=== PATIENT | male | born 1960 | race Caucasian/White ===

== ENCOUNTER 2016-12-19 17:23 | Emergency (ER) | payer OTHER ==
[2016-12-19 17:28] VITALS: TEMP 97.3; BMI 30.7
--- NOTE | 2016-12-19 17:31 | PDOC ---
History of Present Illness - General History Source: Patient Exam Limitations: No Limitations - History of Present Illness Initial Comments: 12/19/16 17:31 CHIEF COMPLAINT: Lightheadedness HISTORY OF PRESENT ILLNESS: This is a 56 year old male with a history of multiple DVTs and prostate ca s/p prostatectomy in 2016 who works as an OR tech. He started work at 3pm and was in his usual state of health, but while walking at around 5pm suddenly became lightheaded and felt like he was about to faint. He was noted by staff to be diaphoretic. He denies chest pain, shortness of breath, or any other symptoms. He reports abdominal discomfort throughout the week, but denies nausea/vomiting, diarrhea/constipation, and fevers/chills. Vital signs on arrival are notable for P 98. FSBG is 88. PCP is Dr. Kohler. REVIEW OF SYSTEMS: GENERAL/CONSTITUTIONAL: No fever or chills. No weakness. No weight change. HEAD, EYES, EARS, NOSE AND THROAT: No change in vision. No ear pain or discharge. No sore throat. CARDIOVASCULAR: No chest pain or palpitations. Lightheadedness, near syncope. RESPIRATORY: No cough, wheezing, or shortness of breath. GASTROINTESTINAL: No nausea, vomiting, diarrhea or constipation. GENITOURINARY: No dysuria, frequency, or change in urination. MUSCULOSKELETAL: No joint or muscle swelling or pain. No neck or back pain. SKIN: No rash or easy bruising. NEUROLOGIC: No headache, vertigo, loss of consciousness, or loss of sensation. PSYCHIATRIC: No depression or anxiety. ENDOCRINE: No increased thirst. No abnormal weight change. HEMATOLOGIC/LYMPHATIC: No anemia, easy bleeding, or history of blood clots. ALLERGIC/IMMUNOLOGIC: No hives or skin allergy. No latex allergy. PHYSICAL EXAM: GENERAL: The patient is awake, alert, and fully oriented, in no acute distress. ENT: Pupils equal, round and reactive to light, extraocular movements intact, sclera anicteric, conjunctiva clear. Neck supple. LUNGS: Clear to auscultation bilaterally. Normal excursion. No respiratory distress or use of accessory muscles. CV: RRR, S1/S2, no MRG. Cap refill < 2 sec. ABDOMEN: Soft, non-distended, non-tender. EXTREMITIES: Normal range of motion, no edema. NEUROLOGICAL: Normal speech, normal gait. CN II-XII grossly intact. PSYCH: Normal mood, normal affect. SKIN: Cool, moist. <Naya Boo - Last Filed: 12/19/16 17:59> <Lianet Chavez - Last Filed: 12/19/16 20:31> - General Chief Complaint: Lightheaded Stated Complaint: DIZZINESS Time Seen by Provider: 12/19/16 17:30 Past History - Past Medical History Cancer: Yes (prostate) DVT: Yes HTN: Yes Hypercholesterolemia: Yes Suicide Attempt (Hx): No - Surgical History Appendectomy: Yes - Psycho/Social/Smoking Cessation Hx Anxiety: No Suicidal Ideation: No Smoking Status: No Smoking History: Never smoked Number of Cigarettes Smoked Daily: 0 Information on smoking cessation initiated: No Substance Use Type: None <Naya Boo - Last Filed: 12/19/16 17:59> <Lianet Chavez - Last Filed: 12/19/16 20:31> - Past Medical History Allergies/Adverse Reactions: Allergies Allergy/AdvReac Type Severity Reaction Status Date / Time No Known Allergies Allergy Verified 12/19/16 17:26 Home Medications: Ambulatory Orders Warfarin Sodium [Coumadin] 4 mg PO HS 03/16/13 *Physical Exam - Vital Signs Last Vital Signs Temp Pulse Resp BP Pulse Ox 97.3 F L 98 H 18 146/63 100 12/19/16 17:27 12/19/16 17:27 12/19/16 17:27 12/19/16 17:27 12/19/16 17:27 <Naya Boo - Last Filed: 12/19/16 17:59> - Vital Signs Last Vital Signs Temp Pulse Resp BP Pulse Ox 97.3 F L 66 18 138/75 100 12/19/16 17:27 12/19/16 18:05 12/19/16 17:27 12/19/16 18:05 12/19/16 17:27 <Lianet Chavez - Last Filed: 12/19/16 20:31> Heart Score/ECG Review - ECG Intrepretation Comment:: 12/19/16 17:40 Normal sinus rhythm at 74bpm, no ST or T wave changes. <Naya Boo - Last Filed: 12/19/16 17:59> ED Treatment Course - RADIOLOGY Radiology Studies Ordered: Category Date Time Status CHEST X-RAY PORTABLE* [RAD] Stat Radiology 12/19/16 17:30 Ordered <Naya Boo - Last Filed: 12/19/16 17:59> - LABORATORY CBC & Chemistry Diagram: 12/19/16 17:36 12/19/16 17:36 - ADDITIONAL ORDERS Additional order review: Laboratory Results 12/19/16 12/19/16 12/19/16 17:50 17:36 17:36 INR Sodium 141 Potassium 4.2 Chloride 106 Carbon Dioxide 26 Anion Gap 9 BUN 18 Creatinine 1.1 Creat Clearance w eGFR > 60 POC Glucometer 88.17324 Random Glucose 94 Calcium 7.6 L Total Bilirubin 0.9 AST 23 ALT 37 Alkaline Phosphatase 79 Creatine Kinase 406 H Creatine Kinase Index 0.6 CK-MB (CK-2) 2.561 CK-MB (CK-2) Rel Index Cancelled Troponin I < 0.02 Total Protein 6.3 L Albumin 3.6 12/19/16 16:42 INR 2.15 H Sodium Potassium Chloride Carbon Dioxide Anion Gap BUN Creatinine Creat Clearance w eGFR POC Glucometer Random Glucose Calcium Total Bilirubin AST ALT Alkaline Phosphatase Creatine Kinase Creatine Kinase Index CK-MB (CK-2) CK-MB (CK-2) Rel Index Troponin I Total Protein Albumin 12/19/16 12/19/16 17:50 17:36 RBC 4.54 MCV 89.3 MCHC 35.4 RDW 13.3 MPV 10.3 Neutrophils % 65.9 Lymphocytes % 22.4 Monocytes % 9.0 Eosinophils % 2.1 Basophils % 0.6 POC Glucometer 88.24435 <Lianet Chavez - Last Filed: 12/19/16 20:31> Medical Decision Making - Medical Decision Making 12/19/16 17:41 A/P: 56 year old male with lightheadedness/near syncope. 1. EKG and junior art director 2. Cardiac labs 3. Orthostatic v/s 4. CXR 5. IVF 6. Reassess <Naya Boo - Last Filed: 12/19/16 17:59> *DC/Admit/Observation/Transfer <Naya Boo - Last Filed: 12/19/16 17:59> - Discharge Dispostion Admit: No <Lianet Chavez - Last Filed: 12/19/16 20:31> Diagnosis at time of Disposition: Near syncope - Discharge Dispostion Disposition: HOME Condition at time of disposition: Improved - Patient Instructions Printed Discharge Instructions: DI for Hypoglycemia, DI for Syncope in Adults ( Fainting) Additional Instructions: FOLLOW UP WITH DR. KOHLER THIS THURSDAY SCHEDULED. GET LOTS OF REST. RETURN IF SYMPTOMS WORSEN OR ANY CONCERNS FOR FURTHER EVALUATION. Print Language: LATVIAN
--- NOTE | 2016-12-19 17:37 | PDOC ---
*Physical Exam - Vital Signs Last Vital Signs Temp Pulse Resp BP Pulse Ox 97.3 F L 98 H 18 146/63 100 12/19/16 17:27 12/19/16 17:27 12/19/16 17:27 12/19/16 17:27 12/19/16 17:27 ED Treatment Course - LABORATORY CBC & Chemistry Diagram: 12/19/16 17:36 12/19/16 17:36 Medical Decision Making - Medical Decision Making 12/19/16 17:36 Pt seen by the Advanced Practice Provider under my direct supervision Ancillary studies reviewed I agree with plan as outlined by the Advanced Practice Provider LIANG Boo *DC/Admit/Observation/Transfer Diagnosis at time of Disposition: Near syncope - Discharge Dispostion Disposition: HOME Condition at time of disposition: Stable - Referrals Referrals: Nico Kohler MD [Primary Care Provider] - - Patient Instructions Printed Discharge Instructions: DI for Syncope in Adults (Fainting), DI for Hypoglycemia Additional Instructions: FOLLOW UP WITH DR. KOHLER THIS THURSDAY SCHEDULED. GET LOTS OF REST. RETURN IF SYMPTOMS WORSEN OR ANY CONCERNS FOR FURTHER EVALUATION. Print Language: CROATIAN
[2016-12-19] MEDS ORDERED: HEMOQUE TEST 1 EACH EACH ONE (17:48)
[2016-12-19 18:45] LABS: BASOPHIL 0.6 % (0-2.0); EOSINOPHIL 2.1 % (0-4.5); MCH 31.6 pg (25.7-33.7); MCHC 35.4 g/dl (32.0-35.9); MEAN CELL VOLUME 89.3 fl (80-96); MEAN PLT VOLUME 10.3 fl (7.5-11.1); NEUTROPHILS 65.9 % (42.8-82.8); PLATELET COUNT 140 K/MM3 (134-434); RDW 13.3 % (11.9-15.9); WHITE BLOOD COUNT 5.7 K/mm3 (4.0-10.0)
[2016-12-19 19:03] LABS: INR 2.15 (0.82-1.09)
[2016-12-19 19:15] LABS: ALBUMIN 3.6 g/dl (3.4-5.0); ANION GAP 9 (8-16); CALCIUM 7.6 mg/dL (8.5-10.1); CO2 26 mmol/L (21-32); GLUCOSE,RANDOM 94 mg/dL (74-106)
[2016-12-19 19:23] LABS: ALK PHOS 79 U/L (45-117); BILIRUBIN,TOTAL 0.9 mg/dL (0.2-1.0); CREATININE 1.1 mg/dL (0.7-1.3); SGOT/AST 23 U/L (15-37); SGPT/ALT 37 U/L (12-78); TOT PROT 6.3 g/dl (6.4-8.2); TROPONIN I < 0.02 ng/ml (0.00-0.05)
[2016-12-19 20:49] VITALS: BP 141/82; PULSE 73
--- NOTE | 2016-12-20 12:20 | EKG ---
Test Reason : Blood Pressure : / mmHG Vent. Rate : 074 BPM Atrial Rate : 074 BPM P-R Int : 166 ms QRS Dur : 106 ms QT Int : 390 ms P-R-T Axes : 042 003 022 degrees QTc Int : 432 ms NORMAL SINUS RHYTHM NORMAL ECG WHEN COMPARED WITH ECG OF 14-OCT-2005 16:37, NO SIGNIFICANT CHANGE WAS FOUND Confirmed by KAVEH GUTIERREZ MD ([id number]) on 12/20/2016 12:19:44 PM Referred By: Confirmed By:KAVEH GUTIERREZ MD
== END 2016-12-19 20:37 | disposition home or self-care (01) ==
LOC: JER 17:23
DX: R55 Syncope and collapse (principal); Z85.46 Personal history of malignant neoplasm of prostate; Z86.718 Personal history of other venous thrombosis and embolism; Z79.01 Long term (current) use of anticoagulants; I10 Essential (primary) hypertension; E78.00 Pure hypercholesterolemia, unspecified
CPT/HCPCS: 36415; 71010-TC; 80053; 82550; 82553; 84484; 85025; 85610; 93005; 93010; 99283-25

== ENCOUNTER 2025-02-16 17:56 | Emergency (ER) | payer OTHER ==
[2025-02-16 18:07] VITALS: BP 150/81; PULSE 83; RESP 19; TEMP 97.8; BMI 32.3
[2025-02-16] MEDS ORDERED: DIPHTH,PERTUSS(ACELL),TET 0.5 ML DISP.SYRIN IM ONE (18:57)
[2025-02-16] MEDS: DIPHTH,PERTUSS(ACELL),TET 0.5 ML DISP.SYRIN IM ONE (19:02)
== END 2025-02-16 19:39 | disposition home or self-care (01) ==
LOC: JERFT 17:56
PROC: 0HQFXZZ Repair Right Hand Skin, External Approach (ICD-10-PCS; principal; 2025-02-16)
PROC: 3E0234Z Introduction of Serum, Toxoid and Vaccine into Muscle, Percutaneous Approach (ICD-10-PCS; 2025-02-16)
DX: S61.011A Laceration without foreign body of right thumb without damage to nail, initial encounter (principal); Z23 Encounter for immunization; W26.8XXA Contact with other sharp object(s), not elsewhere classified, initial encounter
CPT/HCPCS: 90715; 99284-25